=== PATIENT | male | born 1980 | race Caucasian/White ===

== ENCOUNTER 2023-02-08 00:55 | Inpatient (IN) | payer MEDICAID, OTHER ==
--- NOTE | 2023-02-08 01:21 | ED ---
Psych HPI - General Chief Complaint: Psychiatric Symptoms Stated Complaint: suicidal Time Seen by Provider: 02/08/23 01:21 - History of Present Illness Initial Comments: Patient is a 43-year-old male presenting to the emergency room via EMS after going to see his ex- while intoxicated and advising her that she had nothing to live for and was speaking as though he was suicidal. Upon arrival to the emergency room his breath alcohol level had reduced 2.066 and at this time he denies any suicidal thoughts, homicidal thoughts, hallucinations or delusions. He does have admit to low mood due to current life circumstances. He denies any other complaints or concerns at this time including any chest pain, shortness of breath, abdominal pain, nausea, vomiting, fevers or chills. He has past medical history significant for hypertension. - Related Data Allergies Allergy/AdvReac Type Severity Reaction Status Date / Time No Known Allergies Allergy Verified 02/08/23 01:27 Review of Systems ROS Statement: Those systems with pertinent positive or pertinent negative responses have been documented in the HPI. ROS Other: All systems not noted in ROS Statement are negative. Past Medical History Past Medical History: Hypertension Past Surgical History: No Surgical Hx Reported Past Anesthesia/Blood Transfusion Reactions: No Reported Reaction Past Psychological History: No Psychological Hx Reported Smoking Status: Current every day smoker Past Alcohol Use History: Daily Past Drug Use History: None Reported General Exam Limitations: no limitations General appearance: alert, in no apparent distress Head exam: Present: atraumatic, normocephalic, normal inspection Eye exam: Present: normal appearance, PERRL, EOMI. Absent: scleral icterus, conjunctival injection, periorbital swelling ENT exam: Present: normal exam, mucous membranes moist Neck exam: Present: normal inspection, full ROM Respiratory exam: Present: normal lung sounds bilaterally. Absent: respiratory distress, wheezes, rales, rhonchi, stridor Cardiovascular Exam: Present: regular rate, normal rhythm, normal heart sounds. Absent: systolic murmur, diastolic murmur, rubs, gallop, clicks GI/Abdominal exam: Present: soft, normal bowel sounds. Absent: distended, tenderness, guarding, rebound, rigid Rectal exam: Present: deferred Extremities exam: Present: normal inspection. Absent: pedal edema, joint swelling Back exam: Present: normal inspection Neurological exam: Present: alert, oriented X3, CN II-XII intact Psychiatric exam: Present: depressed, flat affect Skin exam: Present: warm, dry, intact, normal color. Absent: rash Course Vital Signs 02/08/23 02/08/23 02/08/23 01:11 03:24 05:00 Temperature 96.8 F L Pulse Rate 81 74 80 Respiratory 16 16 16 Rate Blood Pressure 193/124 182/119 158/95 Blood Pressure [Right Arm] O2 Sat by Pulse 94 L 95 95 Oximetry 02/08/23 08:26 Temperature 97.0 F L Pulse Rate Respiratory 20 Rate Blood Pressure Blood Pressure 182/116 [Right Arm] O2 Sat by Pulse 100 Oximetry Medical Decision Making - Medical Decision Making Was pt. sent in by a medical professional or institution (, PA, ADDICTION SPECIALIST, urgent care, hospital, or shelter...) When possible be specific @ -No Did you speak to anyone other than the patient for history (EMS, parent, family, police, friend...)? What history was obtained from this source @ -No Did you review nursing and triage notes (agree or disagree)? Why? @ -I reviewed and agree with nursing and triage notes Were old charts reviewed (outside hosp., previous admission, EMS record, old EKG, old radiological studies, urgent care reports/EKG's, shelter records)? Report findings @ -No old charts were reviewed Differential Diagnosis (chest pain, altered mental status, abdominal pain women, abdominal pain men, vaginal bleeding, weakness, fever, dyspnea, syncope, headache, dizziness, GI bleed, back pain, seizure, CVA, palpatations, mental health, musculoskeletal)? @ -Differential Mental Health Depression, anxiety, bipolar, psychosis, schizophrenia, borderline personality, situational depression, adjustment disorder, behavioral disorder, brain tumor, malingering, substance abuse, encephalopathy, medication reaction, dementia, hypothyroidism, degenerative neurologic disorder, lupus.... This is not meant to be all-inclusive list EKG interpreted by me (3pts min.). @ -None done X-rays interpreted by me (1pt min.). @ -None done CT interpreted by me (1pt min.). @ -None done U/S interpreted by me (1pt. min.). @ -None done What testing was considered but not performed or refused? (CT, X-rays, U/S, labs)? Why? @ -None What meds were considered but not given or refused? Why? @ -None Did you discuss the management of the patient with other professionals (professionals i.e. , PA, ADDICTION SPECIALIST, lab, RT, psych nurse, clinical social worker, oil well pumper, teacher, duty officer, welfare case worker)? Give summary @ -No Was smoking cessation discussed for >3mins.? @ -No Was critical care preformed (if so, how long)? @ -No Were there social determinants of health that impacted care today? How? (Homelessness, low income, unemployed, alcoholism, drug addiction, transportation, low edu. Level, literacy, decrease access to med. care, correction, rehab)? @ -No Was there de-escalation of care discussed even if they declined (Discuss DNR or withdrawal of care, Hospice)? DNR status @ -No What co-morbidities impacted this encounter? (DM, HTN, Smoking, COPD, CAD, Cancer, CVA, ARF, Chemo, Hep., AIDS, mental health diagnosis, sleep apnea, morbid obesity)? @ -None Was patient admitted / discharged? Hospital course, mention meds given and route, prescriptions, significant lab abnormalities, going to OR and other pertinent info. @ -43-year-old male presenting to the emergency room via EMS after reports of suicidal thoughts however he does not endorse any suicidal thought Agnieszka thoughts at this time. He was drunk when he did make the suicidal like statement. He is now legally sober with a breath alcohol level of 0.066. He denies any homicidal thoughts thoughts of self-harm, visual or auditory hallucinations. He denies any other complaints or concerns. No indication for diagnostic imaging or laboratory studies will cleared from a medical standpoint for EPS evaluation in the interim will maintain safety with him being placed in a psychiatric room with sharps removed along with his belongings and in a psychiatric down. Evaluation by EPS completed and concern for suicidal thoughts patient petitioned by ex- for evaluation. Patient evaluation by EPS recommends admission. Patient willing to be admitted to psychiatric unit voluntarily case discussed with Dr. Tabor who will evaluate patient in complete mental health certificate for admission to mental health services. Will discharge patient in stable condition for transfer to inpatient psychiatric unit for for treatment of adjustment disorder with depressed mood. Undiagnosed new problem with uncertain prognosis? @ -No Drug Therapy requiring intensive monitoring for toxicity (Heparin, Nitro, Insulin, Cardizem)? @ -No Were any procedures done? @ -No Diagnosis/symptom? @ -Adjustment disorder with depressed Acute, or Chronic, or Acute on Chronic? @ -Acute Uncomplicated (without systemic symptoms) or Complicated (systemic symptoms)? @ -Uncomplicated Side effects of treatment? @ -No Exacerbation, Progression, or Severe Exacerbation? @ -No Poses a threat to life or bodily function? How? (Chest pain, [place], [place], pneumonia, PE, COPD, DKA, ARF, appy, cholecystitis, CVA, Diverticulitis, Homicidal, Suicidal, threat to staff... and all critical care pts) @ -No Case discussed with Dr. Tabor. - Lab Data Lab Results 02/08/23 Range/Units 05:15 Coronavirus (PCR) Not Detected (Not Detectd) Disposition Clinical Impression: Adjustment reaction of adult life, Depression Disposition: TRANSFER TO PSYCH HOSP/UNIT Condition: Stable Time of Disposition: 06:35
[2023-02-08] MEDS ORDERED: LORazepam 2 MG/ML INJ IM ONE (04:10)
[2023-02-08] MEDS ORDERED: LORazepam 1 MG TAB PO PRN ×3 (06:36→06:39)
[2023-02-08] MEDS ORDERED: ACETAMINOPHEN TAB 325 MG TAB PO PRN (06:36)
[2023-02-08] MEDS ORDERED: MAGNESIUM HYDROXIDE 2,400 MG/10 ML CUP PO PRN (06:36)
[2023-02-08] MEDS ORDERED: MAG HYDROX/AL HYDROX/SIMETH 30 ML CUP PO PRN (06:36)
[2023-02-08] MEDS ORDERED: LORazepam 2 MG/ML INJ IM PRN (06:39)
--- NOTE | 2023-02-08 10:45 | P.HP ---
Psychiatric H&P - . H&P Date: 02/08/23 History & Physical: Allergies Allergy/AdvReac Type Severity Reaction Status Date / Time No Known Allergies Allergy Verified 02/08/23 01:27 Vital Signs Temp 97.0 F L 02/08/23 08:26 Pulse 80 02/08/23 05:00 Resp 20 02/08/23 08:26 BP 182/116 02/08/23 08:26 Pulse Ox 100 02/08/23 08:26 FiO2 Intake & Output 02/07/23 02/08/23 02/08/23 18:59 06:59 18:59 Weight 92.533 kg 92.533 kg Laboratory Last Values Coronavirus (PCR) Not Detected (Not Detectd) 02/08/23 05:15 02/08/23 08:52 IDENTIFYING DATA: Patient is a , employed, 43-year-old male who is presenting with suicidal ideation and substance use. HPI: Patient was brought in by EMS after being petitioned by his . Patient's BAT was 0.66 on arrival into ED. Petition reads that patient was stating "it was the end for me ". It further reads that he has been saying he has nothing to live for and he was going into the garage to hang himself. His states that patient has been saying this many times with the past few months that he has nothing to live for and wanting to end his life. Per records, RN spoke with his ex- Berenice who stated the following: that the patient told her that he had an extension cord hidden in the garage, that Berenice would find him "on the sauceda of her car in the morning", and that she found patient in the garage with the extension cord tying knots in it. Berenice also stated she feels that Peter is spiralling, and minimizing his alcohol use, and that she feels he just thinks he can "get checked out then go", and that he is at high risk for suicide. Berenice also reported patient told her that 2 weeks ago he attempted to shoot himself but the gun jammed. Patient was seen in the interview room this morning. He states that extramarital affair resulted in being from his of 20 years. He states that the divorce was finalized in December 2022. As a result, he endorses having low mood. Although L the ED, patient did admit to the staff that he was in the garage with an extension cord, patient currently denies this. He states that he was waiting the garage for police to arrive. Patient endorses guilt for his actions, sense of hopelessness about his relationship with his , and increased alcohol use. He states that at baseline, he drinks about 3 times a week but endorses having drank a lot more than usual last night. He states he cannot recall much better drink last night. He denies a history of alcohol withdrawal seizures or rehab placement. Patient denies current suicidal ideation, homicidal ideation. However, patient is noted to be using psychological defense mechanisms of minimization and denial. He denies auditory and visual hallucinations. He denies symptoms of ivanna. He vehemently denies access to guns and says "oh that's what she said? She is making stuff up" in relation to his ex- expressing concerns about statements about a gun. PSYCH HX: Previous psychiatrist: [facility] Therapist: Neville Guevara for 5-6 months from Aug 2022 Past tx: Denies Hospitalizations: Denies NSSI: Denies SA: Denies PMH: HTN ALLERGIES: NKDA PCP: Denies currently Head injuries: Denies Seizures: Denies SUBSTANCE HX: Alcohol: 3 times a week. Drinks couple drinks generally. Denies recent hx of binging. Tobacco: Vape Cannabis: Denies Denies using other substances SOCIAL/LEGAL HX: He says he has been staying with friends. He was for 20 years and was in Dec 2022. He has 3 children. Highest level of education: GED Vocation: [employer] Legal problems: Denies FAM PSYCH HX: Denies Suicide committed: Brother 20 years ago MENTAL STATUS EXAM: General Appearance: Patient appears to be stated age is alert, directable, and attempts to cooperate. Patient appears to have poor hygiene and grooming. Behavior: Patient is seated without any agitated behavior. Speech: Patient's speech is fluent and nonpressured. Mood/Affect: Patient reports their mood is "tired", affect is congruent and constricted. Suicidality/Homicidality: Patient denies having any homicidal ideation intent or plan. Denies any current suicidal ideation intent or plan. Minimizing and denying recent statements Perceptions: Patient denies any visual hallucinations and denies any auditory hallucinations Though content/process: There is no evidence of any delusional thought content and thought process is linear and goal-directed. Memory and concentration: AOX3, grossly intact for the purposes of this session. Judgment and insight: Poor and impulsive STRENGTHS/WEAKNESSES: Strength is employment. Weakness is poor insight INTELLECT: average IMPRESSIONS: Adjustment disorder with depressed mood Alcohol use disorder, in withdrawal Nicotine dependence PLAN: -Patient is admitted under voluntary status to MHU for stabilization of psychiatric symptoms and safety. Patient signed not adult voluntary form and medication consent and is placed in patient's chart. -Medications: - CIWA for alcohol withdrawal and thiamin. - Ativan 1 mg TID PRN for anxiety - NRT - Discussed meds for mood but patient is uninterested in these currently -Patient was counselled on substance abuse and desired to cut back on use. Motivational interviewing. -Patient was informed of the risks, benefits and side effects of the medication and patient verbally consented to taking the medications above -Internal Medicine consult to perform medical evaluation and physical. Particularly HTN without symptoms currently -SW on board for discharge planning. Encourage patient to participate in groups to work on coping skills. 02/08/23 09:59 02/08/23 10:22 02/08/23 10:28
[2023-02-08] MEDS: NICOTINE 14MG/24HR PATCH TRANSDERM SCH (11:20)
[2023-02-08] MEDS: THIAMINE 100 MG TAB PO SCH (11:20)
--- NOTE | 2023-02-08 18:35 | P.HPMEDMHU ---
History of Present Illness H&P Date: 02/08/23 Patient is a 43-year-old male admitted to the mental health unit for suicidal ideation Patient seen and examined. He states that he has a history of high blood pressure but was being monitored and he has never been on medications for it. He denies any alcoholism but states he was drinking on the day of admission and he believes that is what led to him needing to be in the mental health unit. He denies any recent cough, cold, fever, flu, nausea, vomiting, diarrhea, or dysuri a. Vital signs reviewed General: nontoxic, no distress, appears at stated age Derm: warm, dry Eyes: EOMI, no lid lag, anicteric sclera, pupils equal round reactive to light ENT: Nose and ears atraumatic, no thrush, no pharyngeal erythema Cardiovascular: S1S2 reg, no murmur, positive posterior tibial pulse bilateral, no edema, capillary refill less than 2 seconds Lungs: clear to auscultation bilateral, no rhonchi, no rales, no wheeze, no accessory muscle use Ext: no gross muscle atrophy, no contractures Neuro: CN II-XII grossly intact, light touch intact all 4 extremities, Psych: Alert, oriented, appropriate affect Assessment: Hypertension Nicotine dependency Imaging: No images available for review Data Review: Laboratory analysis currently pending Plan: -Continue to monitor patient's blood pressure. Blood pressure was 183/124 on arrival but has decreased to 138/95 without specific targeted hypertensive management. We'll continue to monitor -Check CBC, CMP, and TSH in a.m. to eliminate metabolic causes of his depression -Nicotine patch was offered but patient did not feel this was necessary. Thank you for allowing us to participate in the care of this pleasant patient. Do not hesitate to contact us with questions. Someone can be reached from the [facility] hospitalist group all hours of the day at [phone] or via [employer]. This dictation was prepared using [employer] voice recognition software. Though every attempt is made to correct errors during during dictation some may still exist. Past Medical History Past Medical History: Hypertension History of Any Multi-Drug Resistant Organisms: None Reported Past Surgical History: No Surgical Hx Reported Past Anesthesia/Blood Transfusion Reactions: No Reported Reaction Past Psychological History: No Psychological Hx Reported Smoking Status: Current every day smoker Past Alcohol Use History: Daily Past Drug Use History: None Reported Medications and Allergies Allergies Allergy/AdvReac Type Severity Reaction Status Date / Time No Known Allergies Allergy Verified 02/08/23 01:27 Physical Exam Osteopathic Statement: *. No significant issues noted on an osteopathic structural exam other than those noted in the History and Physical/Consult. Vitals: Vital Signs Temp Pulse Pulse Resp BP BP Pulse Ox 02/08/23 17:29 75 138/95 02/08/23 08:26 97.0 F L 20 182/116 100 02/08/23 05:00 80 16 158/95 95 02/08/23 03:24 74 16 182/119 95 02/08/23 01:11 96.8 F L 81 16 193/124 94 L Intake and Output 02/08/23 02/08/23 02/08/23 06:59 14:59 22:59 Other: Weight 92.533 kg 92.533 kg Cranial Nerve Examination - Cranial Nerves Cranial Nerve II- Optic: Intact Cranial Nerve III- Oculomotor: Intact Cranial Nerve IV- Trochlear: Intact Cranial Nerve V- Trigeminal: Intact Cranial Nerve - Abducens: Intact Cranial Nerve VII- Facial: Intact Cranial Nerve VIII- Auditory: Intact Cranial Nerve IX- Glossopharyngeal: Intact Cranial Nerve X- Vagus: Intact Cranial Nerve XI- Accessory: Intact Cranial Nerve XII- Hypoglossal: Intact Thrombosis Risk Factor Assmnt - Choose All That Apply Any of the Below Risk Factors Present?: Yes Each Factor Represents 1 point: Age 41-60 years Other Risk Factors: No Other congenital or acquired thrombophilia - If yes, enter type in comment: No Thrombosis Risk Factor Assessment Total Risk Factor Score: 1 Thrombosis Risk Factor Assessment Level: Low Risk
[2023-02-09] MEDS: THIAMINE 100 MG TAB PO SCH (09:46)
[2023-02-09] MEDS: NICOTINE 14MG/24HR PATCH TRANSDERM SCH (09:46)
[2023-02-09 11:25] LABS: Basophils % (A) 1 %; Eosinophils # (A) 0.1 k/uL (0-0.7); Eosinophils % (A) 2 %; HCT 46.5 % (39.0-53.0); HGB 15.8 gm/dL (13.0-17.5); Lymphocytes # (A) 1.8 k/uL (1.0-4.8); Lymphocytes % (A) 26 %; MCH 31.3 pg (25.0-35.0); Mean Platelet Volume 8.6; Monocytes # (A) 0.3 k/uL (0-1.0); Monocytes % (A) 4 %; Neutrophils # (A) 4.7 k/uL (1.3-7.7); Neutrophils % (A) 66 %; Platelet Count 148 k/uL (150-450); RBC 5.06 m/uL (4.30-5.90); RDW 12.7 % (11.5-15.5); WBC 7.1 k/uL (3.8-10.6)
--- NOTE | 2023-02-09 11:38 | P.PN ---
Progress Note - Text Progress Note Date: 02/09/23 Interval History: Patient was seen lying in his back today and was directable and agreeable to s peak with contract technical writer in the office. Patient appears to have a constricted affect and was minimizing what had occurred prior to coming into the hospital. He was minimizing his alcohol use and also his depression and stressors going on in his life. He appears to have somewhat superficial and poor insight into his problems and claims that "I just want to go back to work". He states that he does not have alcohol cravings and does not want any medications for her. We spoke about medication options for depression and anxiety and patient was agreeable to try Cymbalta. He states that he is sleeping fairly and a time and has been okay appetite. Claims that he has only been going to some groups. At this time patient denies any suicidal or homical ideations, intent or plan. Patient denies any auditory, visual hallucinations and denies any paranoia or delusions. Patient denies any side effects from the medications and has been compliant with meds. Mental Status Exam: General Appearance: Patient appears to be balding, has a guzman, stated age is alert, directable, and attempts to cooperate. Patient appears to have poor hygiene and grooming. Behavior: Patient is seated without any agitated behavior. Superficial, guarded. Speech: Patient's speech is fluent and nonpressured. Mood/Affect: Patient reports their mood is "im fine, affect is incongruent and constricted. Suicidality/Homicidality: Patient denies having any homicidal ideation intent or plan. Denies any current suicidal ideation intent or plan. Minimizing and superficial Perceptions: Patient denies any visual hallucinations and denies any auditory hallucinations Though content/process: There is no evidence of any delusional thought content and thought process is linear and goal-directed.Minimizing and superficial Memory and concentration: AOX3, grossly intact for the purposes of this session. Judgment and insight: Poor and impulsive IMPRESSIONS: Adjustment disorder with depressed mood Alcohol use disorder, in withdrawal Nicotine dependence Plan: -Patient continues to meet criteria for inpatient psychiatric admission for symptom stabilization and safety. Patient has signed [adult voluntary form and] [medication consent] and was placed in patient's chart. -Medications: Start Cymbalta 30 mg daily for mood/anxiety. -CIWA for alcohol withdrawal and thiamine -When necessary Ativan and Haldol for agitation/aggression. -NRT - nicotine patch -SW on board for discharge planning. Encouraged the patient to participate in milieu. likely discharge in1-2 days back home if patient is improving.
[2023-02-09 11:50] LABS: ALT 37 U/L (4-49); AST 34 U/L (17-59); African American GFR (CKD) >90 (>60 ml/min/1.73 sqM); Albumin 4.2 g/dL (3.5-5.0); Alkaline Phosphatase 103 U/L (38-126); Anion Gap 6 mmol/L; Blood Urea Nitrogen 15 mg/dL (9-20); Calcium 9.3 mg/dL (8.4-10.2); Carbon Dioxide 29 mmol/L (22-30); Chloride 104 mmol/L (98-107); Glucose 88 mg/dL (74-99); Non-African American GFR(CKD) >90 (>60 ml/min/1.73 sqM); Potassium 4.8 mmol/L (3.5-5.1); Sodium 139 mmol/L (137-145); Total Bilirubin 0.9 mg/dL (0.2-1.3); Total Protein 7.4 g/dL (6.3-8.2)
[2023-02-09] MEDS: DULoxetine HCL 30 MG CAPSULE.DR PO SCH (12:52)
[2023-02-10] MEDS: DULoxetine HCL 30 MG CAPSULE.DR PO SCH (08:38)
[2023-02-10] MEDS: NICOTINE 14MG/24HR PATCH TRANSDERM SCH (08:39)
[2023-02-10] MEDS: THIAMINE 100 MG TAB PO SCH (08:39)
[2023-02-10] MEDS: lisinopriL 5 MG TAB PO SCH (10:14)
--- NOTE | 2023-02-10 10:15 | P.PN ---
Progress Note - Text Progress Note Date: 02/10/23 Interval History: Patient was seen lying in his back today in the morning on his bed and was agr eeable to be tried in the office. Patient appeared to be somewhat into this morning however was calm and appropriate. He answered questions appropriately. He states that he is doing "okay" and states that he is not feeling depressed or anxious today. He states that he has been taking his medications and not reporting any side effects. He claimed that he has not been going to groups thus far. He continues to be fairly focused on discharge. He states that he had a difficult time sleeping last night due to his roommate's behavior. At this time patient denies any suicidal or homical ideations, intent or plan. Patient denies any auditory, visual hallucinations and denies any paranoia or delusions. Patient denies any side effects from the medications and has been compliant with meds. Mental Status Exam: General Appearance: Patient appears to be balding, has a guzman, stated age is alert, directable, and attempts to cooperate. Patient appears to have improving hygiene and grooming. Behavior: Patient is seated without any agitated behavior. Superficial, improving mildly Speech: Patient's speech is fluent and nonpressured. Mood/Affect: Patient reports their mood is "alright", affect is congruent and constricted. Suicidality/Homicidality: Patient denies having any homicidal ideation intent or plan. Denies any current suicidal ideation intent or plan. Perceptions: Patient denies any visual hallucinations and denies any auditory hallucinations Though content/process: There is no evidence of any delusional thought content and thought process is linear and goal-directed. Focused on discharge Memory and concentration: AOX3, grossly intact for the purposes of this session. Judgment and insight: Improving mildly IMPRESSIONS: Adjustment disorder with depressed mood Alcohol use disorder, in withdrawal Nicotine dependence Plan: -Patient continues to meet criteria for inpatient psychiatric admission for symptom stabilization and safety. Patient has signed adult voluntary form and medication consent and was placed in patient's chart. -Medications: Cymbalta 30 mg daily for mood/anxiety, start melatonin 6 mg qhs for sleep -start lisinopril 5 mg daily today for HTN -CIWA for alcohol withdrawal and thiamine. -When necessary Ativan and Haldol for agitation/aggression. -NRT - nicotine patch -SW on board for discharge planning. Encouraged the patient to participate in milieu. likely discharge tomorrow if patient continues to improve. SW to look into dispo. continue to offer rehab.
[2023-02-10] MEDS ORDERED: MELATONIN 3 MG TABLET PO SCH (21:00)
[2023-02-11 07:06] VITALS: BP 134/90; PULSE 73; RESP 16; TEMP 97.7
[2023-02-11] MEDS: DULoxetine HCL 30 MG CAPSULE.DR PO SCH (08:50)
[2023-02-11] MEDS: THIAMINE 100 MG TAB PO SCH (08:50)
[2023-02-11] MEDS: lisinopriL 5 MG TAB PO SCH (08:50)
--- NOTE | 2023-02-11 11:55 | P.DS ---
Providers Date of admission: 02/08/23 06:27 Expected date of discharge: 02/11/23 Attending physician: Kevin Oviedo MD Consults: 02/08/23 06:36 Consult Physician Routine Consulting Provider: Jonas [place] Consult Reason/Comments: History and physical Do you want consulting provider notified?: Yes, Notify in am Primary care physician: Stated None - Discharge Diagnosis(es) (1) Adjustment disorder with depressed mood Current Visit: Yes Status: Acute Priority: High (2) Alcohol use disorder Current Visit: Yes Status: Acute Priority: High (3) Nicotine dependence Current Visit: Yes Status: Acute Priority: Low Hospital Course: Admission HPI: Admission note was completed by Dr Barba "Patient is a , employed, 43-year-old male who is presenting with suicidal ideation and substance use. Patient was brought in by EMS after being petitioned by his . Patient's BAT was 0.66 on arrival into ED. Petition reads that patient was stating "it was the end for me ". It further reads that he has been saying he has nothing to live for and he was going into the garage to hang himself. His states that patient has been saying this many times with the past few months that he has nothing to live for and wanting to end his life. Per records, RN spoke with his ex- Berenice who stated the following: that the patient told her that he had an extension cord hidden in the garage, that Berenice would find him "on the sauceda of her car in the morning", and that she found patient in the garage with the extension cord tying knots in it. Berenice also stated she feels that Peter is spiralling, and minimizing his alcohol use, and that she feels he just thinks he can "get checked out then go", and that he is at high risk for suicide. Berenice also reported patient told her that 2 weeks ago he attempted to shoot himself but the gun jammed. Patient was seen in the interview room this morning. He states that extramarital affair resulted in being from his of 20 years. He states that the divorce was finalized in December 2022. As a result, he endorses having low mood. Although L the ED, patient did admit to the staff that he was in the garage with an extension cord, patient currently denies this. He states that he was waiting the garage for police to arrive. Patient endorses guilt for his actions, sense of hopelessness about his relationship with his , and increased alcohol use. He states that at baseline, he drinks about 3 times a week but endorses having drank a lot more than usual last night. He states he cannot recall much better drink last night. He denies a history of alcohol withdrawal seizures or rehab placement. Patient denies current suicidal ideation, homicidal ideation. However, patient is noted to be using psychological defense mechanisms of minimization and denial. He denies auditory and visual hallucinations. He denies symptoms of ivanna. He vehemently denies access to guns and says "oh that's what she said? She is making stuff up" in relation to his ex- expressing concerns about statements about a gun." Hospital course: Upon admission to the unit patient was directable and agreeable to commence treatment and signed adult voluntary form. Patient got along well with other patients on the unit and followed unit protocol. Patient was compliant with the medications and denied any side effects throughout hospital course. Patient was started on Cymbalta 30 mg daily for mood/anxiety, lisinopril was added for hypertension. patient was also on ciwa protocol with prn ativan for w/d. Patient declined any anti cravings meds for etoh use. Patient spoke of his stressors in individual therapy however did not participate much in groups. Patient was also seen by medical team for history and physical exam. Throughout the course of the hospitalization patient gradually improved with regards to mood, anxiety, sleep and became more future oriented with improved insight and judgment. On the day of discharge patient denied any suicidal or homicidal ideations intent or plan denied any auditory or visual hallucinations. Patient endorsed wanting to live for his health and family. The patient denied any access to guns or weapons. Patient denied any paranoia and did not endorse any delusions. Patient does have a significant history of substance abuse and was counseled on abstaining from all substances including alcohol and marijuana. Patient was offered however declined inpatient substance-abuse rehab. Patient was also counseled on the medications and need for regular compliance and was encouraged to follow-up with their outpatient appointment for mental health and also for primary care. Prior to discharge a family meeting will be arranged by manager social services to answer any questions and ensure safety upon discharge. Sw to ensure that there is no guns or weapons at his girlfriends house where he will be discharged to today Mental status exam: General Appearance: Patient appears to be well built, stated age is alert, pleasant, and cooperative. Patient is in no acute distress and has improved hygiene and grooming Behavior: Patient is calmly seated without any agitated behavior. Speech: Patient's speech is fluent and nonpressured. Mood/Affect: Patient reports their mood is "better", affect is congruent and euthymic. Suicidality/Homicidality: Patient denies having any suicidal or homicidal ideation intent or plan. Perceptions: Patient denies any auditory or visual hallucinations. Though content/process: There is no evidence of any delusional thought content and thought process is linear and goal-directed. more future oriented Memory and concentration: AOX3, grossly intact for the purposes of this session. Can spell "WORLD" backwards correctly. Judgment and insight: improved with guarded prognosis Impression: Adjustment disorder with depressed mood Alcohol use disorder Nicotine dependence Plan: -Continue with discharge today as patient has improved and stabilized psychiatrically and is not currently an imminent threat to himself and/or other s. Patient will remain at chronically elevated risk for harm to self and/or others due to his impulsivity and substance abuse. -Continue medications: Cymbalta 30 mg daily for mood/anxiety, lisinopril 5 mg daily for hypertension. Patient did not want any anti-cravings medications for alcohol use. -Patient was counseled on the need for medication compliance and appropriate follow-up at mental health and also primary care for medical issues. Patient verbalized understanding and agreed. -Social work to arrange for and conduct family meeting to ensure safety upon discharge and answer any questions/concerns. Social work also to arrange for patients follow up appointments with [facility] for psychiatric care along with follow up with primary care provider. -Patient counseled on abstaining from recreational drugs and marijuana and alcohol. Was informed/educated on the adverse effects on their physical and mental health. Patient verbally agreed and understood. Patient was offered substance abuse treatment however declined at this time. -Patient was instructed to return to the hospital or seek immediate medical care if their psychiatric or medical symptoms do worsen or reoccur. Allergies Allergy/AdvReac Type Severity Reaction Status Date / Time No Known Allergies Allergy Verified 02/08/23 01:27 Laboratory Results WBC 7.1 k/uL (3.8-10.6) 02/09/23 10:50 RBC 5.06 m/uL (4.30-5.90) 02/09/23 10:50 Hgb 15.8 gm/dL (13.0-17.5) 02/09/23 10:50 Hct 46.5 % (39.0-53.0) 02/09/23 10:50 MCV 92.0 fL (80.0-100.0) 02/09/23 10:50 MCH 31.3 pg (25.0-35.0) 02/09/23 10:50 MCHC 34.0 g/dL (31.0-37.0) 02/09/23 10:50 RDW 12.7 % (11.5-15.5) 02/09/23 10:50 Plt Count 148 k/uL (150-450) L 02/09/23 10:50 MPV 8.6 02/09/23 10:50 Neutrophils % 66 % 02/09/23 10:50 Lymphocytes % 26 % 02/09/23 10:50 Monocytes % 4 % 02/09/23 10:50 Eosinophils % 2 % 02/09/23 10:50 Basophils % 1 % 02/09/23 10:50 Neutrophils # 4.7 k/uL (1.3-7.7) 02/09/23 10:50 Lymphocytes # 1.8 k/uL (1.0-4.8) 02/09/23 10:50 Monocytes # 0.3 k/uL (0-1.0) 02/09/23 10:50 Eosinophils # 0.1 k/uL (0-0.7) 02/09/23 10:50 Basophils # 0.0 k/uL (0-0.2) 02/09/23 10:50 Sodium 139 mmol/L (137-145) 02/09/23 10:50 Potassium 4.8 mmol/L (3.5-5.1) 02/09/23 10:50 Chloride 104 mmol/L (98-107) 02/09/23 10:50 Carbon Dioxide 29 mmol/L (22-30) 02/09/23 10:50 Anion Gap 6 mmol/L 02/09/23 10:50 BUN 15 mg/dL (9-20) 02/09/23 10:50 Creatinine 1.00 mg/dL (0.66-1.25) 02/09/23 10:50 Est GFR (CKD-EPI)AfAm >90 (>60 ml/min/1.73 sqM) 02/09/23 10:50 Est GFR (CKD-EPI)NonAf >90 (>60 ml/min/1.73 sqM) 02/09/23 10:50 Glucose 88 mg/dL (74-99) 02/09/23 10:[address] Glu mg/dL 99 02/09/23 10:50 Hemoglobin A1c 5.1 % (0.0-6.0) 02/09/23 10:50 Calcium 9.3 mg/dL (8.4-10.2) 02/09/23 10:50 Total Bilirubin 0.9 mg/dL (0.2-1.3) 02/09/23 10:50 AST 34 U/L (17-59) 02/09/23 10:50 ALT 37 U/L (4-49) 02/09/23 10:50 Alkaline Phosphatase 103 U/L (38-126) 02/09/23 10:50 Total Protein 7.4 g/dL (6.3-8.2) 02/09/23 10:50 Albumin 4.2 g/dL (3.5-5.0) 02/09/23 10:50 TSH 0.525 mIU/L (0.465-4.680) 02/09/23 10:50 Coronavirus (PCR) Not Detected (Not Detectd) 02/08/23 05:15 Vital Signs Temp 97.7 F 02/11/23 06:35 Pulse 73 02/11/23 06:35 Resp 16 02/11/23 06:35 BP 134/90 02/11/23 06:35 Pulse Ox 96 02/10/23 06:41 FiO2 Intake & Output 02/10/23 02/11/23 02/11/23 18:59 06:59 18:59 Weight 87.997 kg Patient Condition at Discharge: Stable Plan - Discharge Summary Discharge Rx Participant: No New Discharge Prescriptions: New DULoxetine HCL [Cymbalta] 30 mg PO DAILY 30 Days #30 cap lisinopriL [Zestril] 5 mg PO DAILY 30 Days #30 tab Thiamine [Vitamin B-1] 100 mg PO DAILY 30 Days #30 tab Discharge Medication List DULoxetine HCL [Cymbalta] 30 mg PO DAILY 30 Days #30 cap 02/11/23 [Rx] Thiamine [Vitamin B-1] 100 mg PO DAILY 30 Days #30 tab 02/11/23 [Rx] lisinopriL [Zestril] 5 mg PO DAILY 30 Days #30 tab 02/11/23 [Rx] Follow up Appointment(s)/Referral(s): NAOMI Gil [Other] - 02/12/23 10:00 am [facility] [NON-STAFF] - 1 Week Patient Instructions/Handouts: Depression (DC) Activity/Diet/Wound Care/Special Instructions: Avoid the use of street drugs and alcohol. Take all medications as prescribed. When you are in need of refills on your medications, please contact your medical provider and/or outpatient psychiatrist to have this done. Please go to scheduled outpatient appointments for aftercare treatment. If symptoms return or become worse, call the crisis line at and/or go to the nearest emergency room for evaluation. Discharge/Stand Alone Forms: AA Meetings [facility], [place] 22 & 24 - [facility], AA Meetings [place] Discharge Disposition: HOME SELF-CARE
[2023-02-11 12:23] VITALS: BMI 30.4
== END 2023-02-11 11:50 | disposition home or self-care (01) | DRG 754 ==
LOC: EC 00:55 → 3MHU 06:27
PROVIDERS: ADMIT Psychiatry & Neurology Psychiatry; ATTEND Psychiatry & Neurology Psychiatry
DX: F43.21 Adjustment disorder with depressed mood (principal); F10.10 Alcohol abuse, uncomplicated; F17.210 Nicotine dependence, cigarettes, uncomplicated; Z63.5 Disruption of family by separation and divorce; Z28.310 Unvaccinated for COVID-19; Z28.21 Immunization not carried out because of patient refusal; I10 Essential (primary) hypertension; Z71.3 Dietary counseling and surveillance; Z79.899 Other long term (current) drug therapy
CPT/HCPCS: 80053; 82075; 83036; 84443; 85025; 87635; 96372; 99285